=== PATIENT | female | born 1995 | race Caucasian/White ===

== ENCOUNTER 2016-08-04 09:13 | Day surgery (SDC) | payer BC ==
[2016-08-04] MEDS ORDERED: MIDAZOLAM 2 MG/2 ML INJ ONE (10:34)
[2016-08-04] MEDS ORDERED: KETAMINE HCL INJ 500 MG/10 ML VIAL ONE (10:34)
[2016-08-04] MEDS ORDERED: PROPOFOL INJ 200 MG/20 ML VIAL IV ONE (10:34)
[2016-08-04] MEDS ORDERED: MEPERIDINE HCL/PF INJ 25 MG/1 ML DISP.SYRIN IV PRN (11:05)
[2016-08-04] MEDS ORDERED: OXYCODONE-ACETAMINOPHEN 5-325 MG TABLET PO PRN ×2 (11:05)
[2016-08-04] MEDS ORDERED: PROMETHAZINE HCL INJ 25 MG/1 ML VIAL IV PRN ×2 (11:05)
[2016-08-04] MEDS ORDERED: FENTANYL CITRATE INJ/PF 100 MCG/2 ML AMPUL IV PRN ×3 (11:05)
[2016-08-04] MEDS ORDERED: DIPHENHYDRAMINE HCL 50 MG/ML VIAL IV PRN (11:05)
[2016-08-04] MEDS ORDERED: MORPHINE SULFATE 10 MG/ML INJ IV PRN (11:05)
--- NOTE | 2016-08-04 11:29 | Operative Report ---
Operative Report DATE OF SURGERY: 08/04/16 Operative Report: The risks, benefits and alternatives of the procedure are explained to the patient in detail. she is taken to the OR and Propofol sedation is administered patient is placed in the left lateral decubital position A rectal exam is done which did not show any anal fissures, masses . An Olympus videoscope was inserted into the patient's rectum, the scope was then gradually advanced all the way to the cecum. The cecum was identified by the usual anatomical landmarks of the ileocecal valve as well as the appendiceal office Intubation of the terminal ileum is done Prep is good Photo documentations obtained The scope was then sequentially pulled back creative rest was of the colon including the ascending colon, hepatic flexure, transverse colon, splenic flexure, descending colon and finally into the rectosigmoid colon. Retroflexion maneuvers performed. PREOPERATIVE DIAGNOSIS: Previously abnormal terminal ileitis. Right lower quadrant pain POSTOPERATIVE DIAGNOSIS: Biopsies taken in the terminal ileum to rule out Crohn' s disease OPERATION: Colonoscopy with biopsy SURGEON: LISS FRANCISCO ANESTHESIA: LMAC TISSUE REMOVED OR ALTERED: Mucosa in the terminal ileum is biopsied COMPLICATIONS: None. ESTIMATED BLOOD LOSS: none. INTRAOPERATIVE FINDINGS: Normal colon. The patient of the terminal ileum is done. PROCEDURE: Patient tolerated procedure well. No immediate postprocedure complications are noted. Patient is discharged in good condition. Discharge date 08/04/2016. Discharge diet: Regular. Discharge activity: Regular. We'll follow-up on biopsies Patient is instructed to call the office or proceed to the emergency room if any further problems or questions. Patient does have a 2-3 week follow-up to discuss findings.
[2016-08-04] MEDS ORDERED: DEXTROSE 5%-1/2 NORMAL SALINE 1,000 ML IV PRN (11:58)
[2016-08-04] MEDS ORDERED: SIMETHICONE 80 MG TAB.CHEW PO PRN (12:15)
[2016-08-04] MEDS ORDERED: PROMETHAZINE HCL INJ 25 MG/1 ML VIAL INJ PRN (12:15)
[2016-08-04] MEDS ORDERED: ACETAMINOPHEN 325 MG TABLET PO PRN (12:15)
[2016-08-04 12:39] VITALS: BP 121/74
== END 2016-08-04 12:45 | disposition home or self-care (01) ==
LOC: OROUT 09:13
PROVIDERS: ATTEND Internal Medicine Gastroenterology
PROC: 0DBB8ZX Excision of Ileum, Via Natural or Artificial Opening Endoscopic, Diagnostic (ICD-10-PCS; principal; 2016-08-04 11:00)
DX: K52.9 Noninfective gastroenteritis and colitis, unspecified (principal); Z79.899 Other long term (current) drug therapy
CPT/HCPCS: 45380; 81025; 88305 ×2; J2250; J3490; J2704; 810